=== PATIENT | male | born 1970 | race Caucasian/White ===

== ENCOUNTER 2016-12-23 13:10 | Emergency (ER) | payer BC ==
[~2016-12-23] VITALS: Wt 81.6 kg
[~2016-12-23 13:10] MED LIST: BIAXIN500 MG PO; CLARITIN10 MG PO; FLEXERIL10 MG PO; MEDROL DOSEPAK4 MG PO; MOTRIN800 MG PO; NKHM; PENICILLIN VK500 MG PO; PROVENTIL0.09 MG/AC IH
[2016-12-23] MEDS ORDERED: CLARITIN10 MG PO (13:25)
[2016-12-23] MEDS ORDERED: FLONASE ALLERG9.9 ML NAS (13:25)
[2016-12-23] MEDS ORDERED: ROBITUSSIN AC 110 ML PO (13:25)
== END 2016-12-23 14:34 | disposition home or self-care (01) ==
LOC: ED 13:10
DX: B34.9 Viral infection, unspecified (principal); R03.0 Elevated blood-pressure reading, without diagnosis of hypertension

== ENCOUNTER 2016-12-28 10:11 | Emergency (ER) | payer BC ==
[~2016-12-28] VITALS: Ht 167.6 cm; Wt 83.9 kg
[~2016-12-28 10:11] MED LIST changes: +FLONASE ALLERG9.9 ML NAS; +ROBITUSSIN AC 110 ML PO
[2016-12-28 10:43] LABS: BASO # 0.1 10*3/uL (0.0-0.1); BASO % 1.4 % (0.0-1.0); EOS # 0.4 10*3/uL (0.0-0.4); HEMATOCRIT 50.4 % (42.0-52.0); HEMOGLOBIN 17.8 g/dl (14.0-18.0); LYMPH # 2.5 10*3/uL (1.3-4.4); MEAN CELL VOLUME 85.1 fl (80.0-94.0); MEAN CORPUSCULAR HGB 30.1 pg (27.0-31.0); MEAN CORPUSCULAR HGB CONC 35.3 g/dl (33.0-37.0); MEAN PLATELET VOLUME 10.4 fl (9.6-12.3); MONO # 0.7 10*3/uL (0.1-1.0); MONO % 10.3 % (3.0-9.0); NEUT # 3.3 10*3/uL (2.3-7.9); PLATELET COUNT AUTOMATED 272 10*3/uL (130-400); RED BLOOD COUNT 5.92 10*6/uL (4.50-5.90); RED CELL DISTRI WIDTH 12.6 % (0-14.5)
[2016-12-28 10:54] LABS: ACT PARTIAL THROMBO TIME 29.7 SECONDS (20.8-31.5)
[2016-12-28 11:02] LABS: ALKALINE PHOSPHATASE 103 U/L (45-117); BUN 9 mg/dl (7-24); CHLORIDE 100 mmol/L (98-107); CREATININE 1.09 mg/dL (0.70-1.30); MAGNESIUM 2.1 mg/dL (1.5-2.1); POTASSIUM 3.7 mmol/L (3.5-5.1); SGOT/AST 23 IU/L (3-35); SGPT/ALT 40 U/L (12-78); SODIUM 137 mmol/L (136-145); TOTAL PROTEIN 8.2 gm/dL (6.4-8.2)
[2016-12-28 11:03] LABS: TROPONIN I < 0.015 ng/ml (<0.045)
[2016-12-28] MEDS ORDERED: PREDNISONE10 MG PO (11:39)
[2016-12-28] MEDS ORDERED: NAPROSYN500 MG PO (11:39)
== END 2016-12-28 12:22 | disposition home or self-care (01) ==
LOC: ED 10:11
PROVIDERS: Nurse Practitioner Family
DX: R06.02 Shortness of breath (principal); R05 Cough; J06.9 Acute upper respiratory infection, unspecified; Z79.899 Other long term (current) drug therapy; Z87.01 Personal history of pneumonia (recurrent)